=== PATIENT | male | born 1945 | race African-American/Black ===

== ENCOUNTER 2018-08-14 21:12 | Emergency (ER) | payer MEDICAID, OTHER ==
[~2018-08-14] VITALS: Ht 172.7 cm; Wt 68.0 kg
[~2018-08-14 21:12] MED LIST: CRESTOR20 MG PO; DIABETIC PILL; bp med
[2018-08-14 21:37] VITALS: BP 146/77
--- NOTE | 2018-08-14 21:40 | NUR ---
ED Nurse Note: Patient wheelcharied into ED c/o of right leg pain due to a fall suffered while the patient was at home 3 days ago, patient reports 10/10 pain, at time of arrival patient does not exhibit any lesions on his legs no brusing noted. patient is alert and oriented x4
[2018-08-14] MEDS ORDERED: Tetanus/Diptheria/Pertussis Vaccine 0.5ml Syr IM ONE (21:54)
--- NOTE | 2018-08-14 21:55 | Emergency Room Report ---
History of Present Illness General Chief Complaint: Multiple Trauma/Fall Source: Patient, Family Member Present Illness HPI 4 days ago the patient tripped over his cat in his kitchen. He had a non- syncopal fall. He hit his right knee. He's been unable to ambulate since that time. He has swelling in the knee and also scraped the kneecap. The pain is rated 10/10. His doctor had prescribed extra strength Tylenol and that hasn't been helping. He denies any other injury to his body aside from his knee. Denies numbness. There is no hip or ankle pain. The pain is aching and worse when he tries to straighten his knee. He rates the pain 10/10 at this time, aching worse when dependent and when he moves the lower leg. The patient has diabetes and states that his blood sugars of been okay. Patient denies any fevers, chills, chest pain, palpitations, nausea, vomiting, diarrhea, constipation, dysuria or other joint pain at this time. Allergies: Coded Allergies: No Known Allergies (Unverified , 07/04/12) Patient History Past Medical History: see triage record Past Surgical History: other - Left leg surgery Social History: Denies: smoking Social History Narrative with daughter Reviewed Nursing Documentation: PMH: Agreed; PSxH: Agreed Nursing Documentation-PMH Hx Cardiac Problems: No Hx Hypertension: Yes Hx Diabetes: Yes Hx Cancer: No Hx Gastrointestinal Problems: No Hx Neurological Problems: No Hx Cerebrovascular Accident: Yes - hyperlipidemia Review of Systems All Other Systems: negative except mentioned in HPI Physical Exam Vital Signs Date Time Temp Pulse Resp B/P (MAP) Pulse Ox O2 Delivery O2 Flow Rate FiO2 08/14/18 21:35 98.6 69 18 146/77 98 Room Air Sp02 EP Interpretation: reviewed, normal General Appearance: well appearing, no apparent distress, GCS 15 Head: normocephalic, atraumatic Eyes: bilateral eye normal inspection, bilateral eye PERRL, bilateral eye EOMI ENT: hearing grossly normal, normal voice, moist mucus membranes Neck: full range of motion, supple Respiratory: lungs clear, normal breath sounds, no respiratory distress, speaking full sentences Cardiovascular #1: normal peripheral pulses, regular rate, rhythm, no edema Cardiovascular #2: 2+ dorsalis pedis (R) Gastrointestinal: normal inspection, normal bowel sounds, non tender, soft Musculoskeletal: swelling, other - Tenderness right knee with swelling no effusion noted. No hip or ankle pain. The tenderness is more medial. Ligaments are stable without tore sign or positive Apley's compression. Neurologic: alert, oriented x3, motor strength/tone normal, sensory intact, speech normal Psychiatric: mood/affect normal Skin: abrasions - Patella Medical Decision Making Diagnostic Impression: Primary Impression: Contusion of right knee Qualified Codes: S80.01XA - Contusion of right knee, initial encounter Additional Impression: Degenerative joint disease Qualified Codes: M17.11 - Unilateral primary osteoarthritis, right knee ER Course Patient presents with inability to ambulate after a non-syncopal fall hitting his right knee. Differential includes fracture, contusion, sprain amongst others. X-rays are indicated. As is an abrasion. Tetanus and Neosporin will be given. Patient will be given Percocet and Motrin here. If there is no fracture we will attempt to place a knee immobilizer and see if he might be able to ambulate when it analgesia is better and he may respond better to a walker and crutches. Xray without fx. DJD. Much improved pain with analgesia. Attempted to apply knee immobilizer. Unable to straighten enough to apply. Marciano applied with good position and improvement. Tension and distal neurovasc checked by me and normal. Attempt to ambulate with crutches - unable. Walker provided and able to ambulate. Patient stable for outpatient observation and treatment. Other X-Ray Diagnostic Results Other X-Ray Diagnostic Results : X-Ray ordered: Right knee # of Views/Limited Vs Complete: 3 View Indication: Pain Interpretation: no dislocation, no soft tissue swelling, no fractures, other - Degenerative joint disease Impression: Other Electronically Signed by: Electronically signed by Kevin Taylor MD Last Vital Signs Date Time Temp Pulse Resp B/P (MAP) Pulse Ox O2 Delivery O2 Flow Rate FiO2 08/15/18 00:24 98.6 77 18 140/80 98 Room Air Status: improved Disposition: HOME, SELF-CARE Condition: Improved Scripts Tramadol Hcl* (ULTRAM*) 50 Mg Tablet 50 MG ORAL Q6H PRN for For Pain, #10 TAB 0 Refills Prov: Kevin Taylor MD 08/14/18 Ibuprofen* (MOTRIN*) 600 Mg Tablet 600 MG ORAL Q6H PRN for For Pain, #20 TAB Prov: Kevin Taylor MD 08/14/18 Kevin Taylor MD Aug 14, 2018 21:55
[2018-08-14] MEDS ORDERED: Neosporin Oint Ud Pkt TOP ONE (22:00)
[2018-08-14] MEDS ORDERED: oxyCODONE HCL/Acetaminophen 5/325mg PO ONE (22:00)
[2018-08-14] MEDS ORDERED: Tetanus-Diphtheria Toxoid 0.5ml IM ONE (22:00)
[2018-08-14] MEDS ORDERED: TRAMADOL HCL50 MG ORAL (23:35)
[2018-08-14] MEDS ORDERED: IBUPROFEN600 MG ORAL (23:35)
[2018-08-15 00:22] VITALS: BP 140/80
--- NOTE | 2018-08-15 00:22 | NUR ---
ED Nurse Note: patient cleared for discharge by ERMGiulia. Patient AOx4, VSS, ambulatory with aide of a walker, no s/s of acute distress noted at this time. patient has daughter at bedside to take him home. Patient provided with discharge instructions and medication prescriptions. Patient verbalized understanding. Patietn ID band removed. patient took all personal belongings with him.
[2018-08-15 00:24] VITALS: BP 140/80
--- NOTE | 2018-08-15 11:31 | Diagnostic Imaging Report ---
Indication: Trauma, pain, status post fall 2 days ago Technique: 3 views of the right knee Comparison: None Findings: There are superior and inferior pole patellar osteophytes. No suprapatellar effusion. No acute fractures. No dislocations. There are arterial calcifications Impression: Degenerative changes. No acute bony trauma
== END 2018-08-15 00:25 | disposition home or self-care (01) ==
LOC: EMR 21:55
DX: S80.01XA Contusion of right knee, initial encounter (principal); S80.211A Abrasion, right knee, initial encounter; W01.0XXA Fall on same level from slipping, tripping and stumbling without subsequent striking against object, initial encounter; Y92.000 Kitchen of unspecified non-institutional (private) residence as the place of occurrence of the external cause; M17.11 Unilateral primary osteoarthritis, right knee; Z23 Encounter for immunization; I10 Essential (primary) hypertension; E11.9 Type 2 diabetes mellitus without complications; E78.5 Hyperlipidemia, unspecified
CPT/HCPCS: 29505; 82962; 90471; 90714; 90715; 99283

== ENCOUNTER 2019-04-15 13:51 | Emergency (ER) | payer MEDICAID, OTHER ==
[~2019-04-15] VITALS: Ht 172.7 cm; Wt 68.0 kg
[~2019-04-15 13:51] MED LIST changes: +IBUPROFEN600 MG ORAL; +TRAMADOL HCL50 MG ORAL
[2019-04-15 14:26] VITALS: BP 140/76
--- NOTE | 2019-04-15 14:27 | NUR ---
ED Nurse Note: pt came in with daughter from home c/o urinary incontinence . Pt denies any pain ,n/v/d. ERMD eval done awaiting orders.
--- NOTE | 2019-04-15 14:55 | NUR ---
ED Nurse Note: pt medicated blood and urine sent to lab
[2019-04-15 15:08] LABS: BASOPHILS % (AUTO) 1.1 % (0.0-2.0); HEMATOCRIT 33.5 % (42.0-52.0); HEMOGLOBIN 11.2 G/DL (14.2-18.0); LYMPHOCYTES % (AUTO) 23.8 % (20.0-45.0); MEAN CORPUSCULAR VOLUME 82 FL (80-99); MONOCYTES % (AUTO) 10.7 % (1.0-10.0); NEUTROPHILS % (AUTO) 62.4 % (45.0-75.0); PLATELET COUNT 164 K/UL (150-450); RED BLOOD COUNT 4.07 M/UL (4.70-6.10); WHITE BLOOD COUNT 8.7 K/UL (4.8-10.8)
--- NOTE | 2019-04-15 15:08 | Emergency Room Report ---
History of Present Illness General Chief Complaint: Male Urogenital Problems Source: Patient, Medical Record Present Illness HPI Patient presents with 2 weeks of incontinence. When he feels the urge to go he starts urinating almost immediately. It sprays out. He denies any dysuria or hematuria. He does not know whether he had problems with his prostate in the past. The patient is a diabetic and believes that his sugars are controlled. He has been urinating frequently. No fevers, chills, sore throat, chest pain, palpitations, nausea, vomiting, diarrhea, dysuria, abdominal pain, shortness of breath, joint pain, rashes, depression, anxiety, visual changes, dizziness, headache. Allergies: Coded Allergies: No Known Allergies (Unverified , 07/04/12) Patient History Past Medical History: see triage record Social History: Denies: smoking Social History Narrative Here with daughter Reviewed Nursing Documentation: PMH: Agreed; PSxH: Agreed Nursing Documentation-PMH Past Medical History: No History, Except For Hx Cardiac Problems: No Hx Hypertension: Yes Hx Diabetes: Yes Hx Cancer: No Hx Gastrointestinal Problems: No Hx Neurological Problems: No Hx Cerebrovascular Accident: Yes - hyperlipidemia, left side weakness Review of Systems All Other Systems: negative except mentioned in HPI Physical Exam Vital Signs Date Time Temp Pulse Resp B/P (MAP) Pulse Ox O2 Delivery O2 Flow Rate FiO2 04/15/19 14:10 98.1 70 16 140/76 (97) 99 Room Air Sp02 EP Interpretation: reviewed, normal General Appearance: well appearing, no apparent distress, GCS 15 Head: normocephalic Eyes: bilateral eye normal inspection, bilateral eye PERRL, bilateral eye EOMI ENT: moist mucus membranes Neck: supple Respiratory: lungs clear, normal breath sounds Cardiovascular #1: regular rate, rhythm, no edema Cardiovascular #2: 2+ radial (R) Gastrointestinal: normal inspection, normal bowel sounds, non tender, no mass, non-distended Genitourinary: normal inspection, no CVA tenderness Musculoskeletal: back normal, gait/station normal, normal range of motion Neurologic: alert, grossly normal, oriented - X2 Psychiatric: mood/affect normal Skin: no rash, warm/dry Medical Decision Making Diagnostic Impression: Primary Impression: Hyperglycemia Additional Impression: Renal failure Qualified Codes: N17.9 - Acute kidney failure, unspecified; N18.9 - Chronic kidney disease, unspecified ER Course Diabetic patient presents with incontinence and urgency. Differential includes hyperglycemia, urinary tract infection, sphincter amongst others. Patient will be evaluated EKG, urinalysis. Patient will receive a dose of Pyridium. EKG sinus rhythm with right bundle branch block and LVH. Chest x-ray with no acute process. Labs with normal white count. Glucose 553 and evidence of renal failure. Normal saline begun. Patient will need to be admitted to the hospital for glucose control and also monitoring of renal failure. Accucheck crit high after bolus. Insulin IV ordered As patient is on oral medication only and insulin is needed at this time the patient needs to be transferred for observation or inpatient admission. He was presented twice. When learning that he was going to be transferred he started refusing to go. After discussion with the patient he accepts going to the urgent care where he will consider staying. This discussion occurred with the daughter. Repeat Accu-Chek 396. Hydration continuing. Patient denies urgency at this time. Labs Test 04/15/19 14:35 04/15/19 14:40 Urine Color Pale yellow Urine Appearance Clear Urine pH 5 (4.5-8.0) Urine Specific Pinson 1.010 (1.005-1.035) Urine Protein 2+ (NEGATIVE) Urine Glucose (UA) 4+ (NEGATIVE) Urine Ketones Negative (NEGATIVE) Urine Blood 1+ (NEGATIVE) Urine Nitrite Negative (NEGATIVE) Urine Bilirubin Negative (NEGATIVE) Urine Urobilinogen Normal MG/DL (0.0-1.0) Urine Leukocyte Esterase Negative (NEGATIVE) Urine RBC 0-2 /HPF (0 - 0) Urine WBC 0 /HPF (0 - 0) Urine Squamous Epithelial Cells None /LPF (NONE/OCC) Urine Bacteria None /HPF (NONE) White Blood Count 8.7 K/UL (4.8-10.8) Red Blood Count 4.07 M/UL (4.70-6.10) Hemoglobin 11.2 G/DL (14.2-18.0) Hematocrit 33.5 % (42.0-52.0) Mean Corpuscular Volume 82 FL (80-99) Mean Corpuscular Hemoglobin 27.5 PG (27.0-31.0) Mean Corpuscular Hemoglobin Concent 33.5 G/DL (32.0-36.0) Red Cell Distribution Width 14.0 % (11.6-14.8) Platelet Count 164 K/UL (150-450) Mean Platelet Volume 7.4 FL (6.5-10.1) Neutrophils (%) (Auto) 62.4 % (45.0-75.0) Lymphocytes (%) (Auto) 23.8 % (20.0-45.0) Monocytes (%) (Auto) 10.7 % (1.0-10.0) Eosinophils (%) (Auto) 2.0 % (0.0-3.0) Basophils (%) (Auto) 1.1 % (0.0-2.0) Prothrombin Time 10.9 SEC (9.30-11.50) Prothromb Time International Ratio 1.0 (0.9-1.1) Activated Partial Thromboplast Time 26 SEC (23-33) Sodium Level 132 MMOL/L (136-145) Potassium Level 3.8 MMOL/L (3.5-5.1) Chloride Level 99 MMOL/L (98-107) Carbon Dioxide Level 24 MMOL/L (21-32) Anion Gap 9 mmol/L (5-15) Blood Urea Nitrogen 54 mg/dL (7-18) Creatinine 3.4 MG/DL (0.55-1.30) Estimat Glomerular Filtration Rate mL/min (>60) Glucose Level 553 MG/DL (74-106) Calcium Level 8.9 MG/DL (8.5-10.1) Total Bilirubin 0.3 MG/DL (0.2-1.0) Aspartate Amino Transf (AST/SGOT) 13 U/L (15-37) Alanine Aminotransferase (ALT/SGPT) 17 U/L (12-78) Alkaline Phosphatase 238 U/L (46-116) Total Creatine Kinase 153 U/L (26-308) Troponin I 0.000 ng/mL (0.000-0.056) Total Protein 8.2 G/DL (6.4-8.2) Albumin 3.6 G/DL (3.4-5.0) Globulin 4.6 g/dL Albumin/Globulin Ratio 0.8 (1.0-2.7) Lipase 328 U/L (73-393) EKG Diagnostic Results Rate: normal Rhythm: NSR ST Segments: no acute changes - Incomplete right bundle branch block LVH Rhythm Strip Diag. Results Rhythm: NSR, no PVC's, no ectopy Chest X-Ray Diagnostic Results Chest X-Ray Diagnostic Results : Chest X-Ray Ordered: Yes # of Views/Limited/Complete: 1 View Indication: Other EP Interpretation: Yes Interpretation: no consolidation, no effusion, no pneumothorax Impression: No acute disease Electronically Signed by: Electronically signed by Kevin Taylor MD Last Vital Signs Date Time Temp Pulse Resp B/P (MAP) Pulse Ox O2 Delivery O2 Flow Rate FiO2 04/15/19 20:25 98.1 87 19 145/86 98 Room Air Status: improved Disposition: XFER T-[facility] Condition: Serious Referrals: NON PHYSICIAN (PCP) Kevin Taylor MD Apr 15, 2019 15:08
[2019-04-15 15:18] LABS: ALANINE AMINOTRANSFERASE 17 U/L (12-78); ALBUMIN 3.6 G/DL (3.4-5.0); ALBUMIN/GLOBULIN RATIO 0.8 (1.0-2.7); ALKALINE PHOSPHATASE 238 U/L (46-116); ANION GAP 9 mmol/L (5-15); ASPARTATE AMINO TRANSFERASE 13 U/L (15-37); BILIRUBIN,TOTAL 0.3 MG/DL (0.2-1.0); BLOOD UREA NITROGEN 54 mg/dL (7-18); CALCIUM 8.9 MG/DL (8.5-10.1); CARBON DIOXIDE 24 MMOL/L (21-32); CHLORIDE 99 MMOL/L (98-107); CREATINE KINASE 153 U/L (26-308); CREATININE 3.4 MG/DL (0.55-1.30); POTASSIUM 3.8 MMOL/L (3.5-5.1); SODIUM 132 MMOL/L (136-145)
[2019-04-15 15:18] LABS: APPEARANCE,URINE CLEAR; BILIRUBIN, URINE NEGATIVE (NEGATIVE); COLOR,URINE PALE YELLOW; GLUCOSE, URINE (UA) 4+ (NEGATIVE); KETONES,URINE NEGATIVE (NEGATIVE); LEUKOCYTE ESTERASE ,URINE NEGATIVE (NEGATIVE); NITRITE,URINE NEGATIVE (NEGATIVE); PH,URINE 5 (4.5-8.0); PROTEIN,URINE 2+ (NEGATIVE); UROBILINOGEN,URINE NORMAL MG/DL (0.0-1.0)
[2019-04-15] MEDS ORDERED: Insulin Human Regular 100units/ml 3ml IV ONE (17:00)
--- NOTE | 2019-04-15 17:25 | Diagnostic Imaging Report ---
Indication: Chest pain Technique: One view of the chest Comparison: none Findings: The heart size is upper limits normal. There is tortuous and ectatic. Lungs and pleural spaces are clear Impression: No acute process
[2019-04-15 18:18] VITALS: BP 128/77
[2019-04-15 18:25] VITALS: BP 139/76
[2019-04-15] MEDS ORDERED: CARVEDILOL3.125 MG ORAL (19:11)
[2019-04-15] MEDS ORDERED: ISOSORBIDE MONO60 M1 PO (19:11)
[2019-04-15] MEDS ORDERED: FUROSEMIDE40 MG ORAL (19:11)
[2019-04-15] MEDS ORDERED: PANTOPRAZOLE SO40 MG ORAL (19:11)
[2019-04-15] MEDS ORDERED: IRON18 M1 PO (19:11)
[2019-04-15] MEDS ORDERED: DOK100 M1 PO (19:11)
[2019-04-15] MEDS ORDERED: GABAPENTIN600 MG ORAL (19:11)
[2019-04-15] MEDS ORDERED: CLOPIDOGREL75 MG ORAL (19:13)
[2019-04-15] MEDS ORDERED: GLIPIZIDE5 MG ORAL (19:13)
[2019-04-15] MEDS ORDERED: AMLODIPINE BESY10 MG ORAL (19:13)
--- NOTE | 2019-04-15 19:25 | NUR ---
ED Nurse Note: Report received from GABBY Palumbo. Pt is in bed, No acute distress is noted at this time.
--- NOTE | 2019-04-15 19:57 | NUR ---
ED Nurse Note: Report given to Carolyn over the phone from [facility].
[2019-04-15 20:25] VITALS: BP 145/86
--- NOTE | 2019-04-15 20:25 | NUR ---
ER DISCHARGE NOTE: Patient was picked up by [facility] ambulance unit [facility] to go to [facility] via gurney in stable condition. IV site is to right hand and is intact. Report given to ambulance personnels.
== END 2019-04-15 20:25 | disposition home or self-care (01) ==
LOC: EMR 14:38 → EDBEDREQ 20:10 → EMR 20:25
DX: E11.65 Type 2 diabetes mellitus with hyperglycemia (principal); E11.22 Type 2 diabetes mellitus with diabetic chronic kidney disease; I12.9 Hypertensive chronic kidney disease with stage 1 through stage 4 chronic kidney disease, or unspecified chronic kidney disease; N18.9 Chronic kidney disease, unspecified; N17.9 Acute kidney failure, unspecified; I45.10 Unspecified right bundle-branch block; I51.7 Cardiomegaly
CPT/HCPCS: 36415; 71045; 80053; 81003; 82550; 82962; 83690; 84484; 85025; 85610; 85730; 93005; 96361; 96374; 99284; J7030